=== PATIENT | male | born 1985 | race Caucasian/White ===

== ENCOUNTER 2020-04-09 01:03 | Emergency (ER) | payer SELFPAY ==
[~2020-04-09] VITALS: Ht 187.9 cm; Wt 86.2 kg
== END 2020-04-09 03:16 | disposition left against medical advice (07) ==
LOC: ED 01:03
DX: S20.212A Contusion of left front wall of thorax, initial encounter (principal); S16.1XXA Strain of muscle, fascia and tendon at neck level, initial encounter; Y08.89XA Assault by other specified means, initial encounter; Y93.89 Activity, other specified; Y92.89 Other specified places as the place of occurrence of the external cause; Y99.8 Other external cause status